=== PATIENT | female | born 1995 | race Caucasian/White ===

== ENCOUNTER 2016-10-21 06:22 | Emergency (ER) | payer OTHER ==
[~2016-10-21] VITALS: Ht 162.6 cm; Wt 106.0 kg
[~2016-10-21 06:22] MED LIST: PREN1TAB49 PO
[2016-10-21 06:34] VITALS: Ht 162.6 cm; Wt 106.0 kg
[2016-10-21] MEDS ORDERED: PARO40TA48 PO (07:20)
--- NOTE | 2016-10-21 07:25 | ERD ---
ER Documentation Chief Complaint Date/Time DATE: 10/21/16 TIME: 0648 Chief Complaint Complains of a blacking out during a panic attack HPI 21-year-old female presents the emergency department complaining of "I am having a bad anxiety attack." Patient states that she has been feeling stressed lately. She feels as if her heart rate was going fast and she feels like she is having anxiety. She told the triage nurse that she thinks she may have "blacked out" during the tach. However she has complete recollection of the event. She denies focal weakness, numbness. There is no seizure activity noted. She has had episodes like this with her previous anxiety. ROS All systems reviewed and are negative except as per history of present illness. Medications Home Meds Active Scripts Paroxetine Hcl* (Paxil*) 40 Mg Tablet, 40 MG PO HS, #20 TAB Prov:SILVERIO MARY 10/21/16 Reported Medications Vits W-Ca,Fe,Fa(<1MG) () 1 Tab Tablet, 1 TAB PO DAILY 03/20/12 Allergies Allergies: Coded Allergies: No Known Allergy (Unverified , 06/19/13) PMhx/Soc Medical and Surgical Hx: pt denies Medical Hx, pt denies Surgical Hx FmHx History of anxiety in the family. No history of early sudden cardiac or cardiac issues. Physical Exam Vitals Vital Signs Date Time Temp Pulse Resp B/P Pulse Ox O2 Delivery O2 Flow Rate FiO2 10/21/16 06:34 97.7 88 20 120/72 95 Physical Exam GENERAL: The patient is well developed and appropriate for usual state of health in no apparent distress HEENT: Pupils equal, round, and reactive to light. EOMI. There is no scleral icterus. NECK: C-spine is soft and supple, there is no meningismus. There is no cervical lymphadenopathy. LUNGS: Clear to auscultation bilaterally. There are no rales, wheezes or rhonchi. HEART: Regular rate and rhythm, no murmurs, clicks, rubs or gallops. ABDOMEN: Soft, non-tender, non-distended. There are bowel sounds in all four quadrants. No rebound or guarding. EXTREMITIES: There is no peripheral cyanosis or edema. No focal swelling or erythema. NEURO: The patient moves all four extremities with 5/5 strength. Cranial nerves II - XII are intact. Normal gait. Alert and oriented SKIN: There is no apparent rash or petechiae. HEME/LYMPHATIC: There is no evidence of excessive bruising or lymphedema. PSYCHIATRIC: Patient is anxious but reliable. Normal mental status. She denies suicidal or homicidal thoughts. Procedures/MDM Patient was taken to a room, seen and evaluated. Comfort measures were initiated. Diagnostic tests were ordered and reviewed. 3 LEAD RHYTHM STRIP: Normal sinus rhythm without ectopy EK lead EKG reviewed by myself: Normal Sinus Rhythm Normal [place] and intervals No ST elevation, depression, or T wave inversion Impression: Normal EKG MEDICAL DECISION MAKING: This is a 21-year-old female with no history of cardiac disease presents the emergency department anxiety type symptoms. Her EKG is confirmed no significant evidence of arrhythmia or preexcitation. I have no concerns that her anxiety seem to be cardiac related. At this time, she does not appear to be an imminent danger to herself or others and appears appropriate for outpatient supportive care. Departure Diagnosis: Primary Impression: Anxiety Condition: Stable Patient Instructions: Anxiety Reaction Additional Instructions: Please follow up with the [facility] next to the [facility] . Return for any problems or concerns SILVERIO MARY October 21, 2016 07:25
== END 2016-10-21 07:48 | disposition home or self-care (01) ==
LOC: E/R 06:22
DX: F41.9 Anxiety disorder, unspecified (principal); R55 Syncope and collapse
CPT/HCPCS: 93005; Z7502